=== PATIENT | female | born 1970 | race Hispanic/Latino ===

== ENCOUNTER → 2018-10-04 | Outpatient (CLI) | payer BC ==
--- NOTE | 2018-10-12 08:27 | Diagnostic Imaging Report ---
#[id number] - MGSCRBIL #BILATERAL DIGITAL SCREENING MAMMOGRAM WITH CAD: 10/04/2018 CLINICAL: Routine screening. Baseline examination. No prior exams were available for comparison. Current study contains 8 films. The tissue of both breasts is heterogeneously dense. This may lower the sensitivity of mammography. Current study was also evaluated with a Computer Aided Detection (CAD) system. Bilateral breast implants are intact. No significant masses, calcifications, or other findings are seen in either breast. IMPRESSION: BENIGN There is no mammographic evidence of malignancy. A 1 year screening mammogram is recommended. The patient will be notified by letter of the results. [facility] Nevaeh grijalva/maddie:10/11/2018 15:15:48 Environmental Engineering Manager: Michelle DELAROSA)(M), [facility] letter sent: Normal Exam Mammogram BI-RADS: 2 Benign
== END ==
LOC: MAMMO 10:00
PROVIDERS: ATTEND Obstetrics & Gynecology
DX: Z12.31 Encounter for screening mammogram for malignant neoplasm of breast (principal)
CPT/HCPCS: 77067

== ENCOUNTER 2025-08-31 00:49 | Emergency (ER) | payer BC, OTHER ==
[~2025-08-31] VITALS: Ht 165.1 cm; Wt 63.5 kg
[2025-08-31 00:50] VITALS: TEMP 98.3
[2025-08-31 01:34] LABS: BASOPHILS % 0.8 % (0.0-1.0); EOSINOPHILS % 1.2 % (0.0-6.0); LYMPHOCYTES % 27.6 % (18.0-39.1); MONOCYTES % 11.5 % (4.4-11.3); NEUTROPHILS % 58.6 % (38.7-80.0); RED CELL DISTRIBUTION WIDTH 19.7 % (11.7-14.4)
[2025-08-31] MEDS: ONDANSETRON HCL INJ 2MG/ML 2ML 2 MG/ML VIAL IV STA (01:36)
[2025-08-31] MEDS: Morphine 2mg Syringe 2 MG/ML SYR IV PRN (01:37)
[2025-08-31] MEDS: SODIUM CHLORIDE 0.9% 1000ML 1,000 ML IV ONE (01:38)
[2025-08-31 01:55] LABS: EST GLOMERULAR FILTRATION RATE 105.0 ML/MIN (>=60)
[2025-08-31 03:15] VITALS: PULSE 83; RESP 17
[2025-08-31] MEDS ORDERED: Morphine 2mg Syringe 2 MG/ML SYR IV ONE (03:15)
[2025-08-31] MEDS ORDERED: IOPAMIDOL 370 MG/ML 100 ML INFUS..BTL INJ ONE (03:18)
[2025-08-31] MEDS: DICYCLOMINE HCL 20 MG/2 ML VIAL IM ONE (03:52)
[2025-08-31] MEDS ORDERED: PANTOPRAZOLE SO40 MG PO (04:15)
[2025-08-31] MEDS ORDERED: DICYCLOMINE HCL20 MG PO (04:15)
[2025-08-31] MEDS ORDERED: ONDANSETRON ODT4 MG SL (04:15)
[2025-08-31 04:41] VITALS: BP 122/67; PULSE 87; RESP 15; TEMP 97.9; O2SAT 98
== END 2025-08-31 04:39 | disposition home or self-care (01) ==
LOC: ER 01:03
DX: K29.70 Gastritis, unspecified, without bleeding (principal); Z98.84 Bariatric surgery status
CPT/HCPCS: 36415; 74177; 80053; 83690; 84484; 85025; 93005; 99284; J2270; J2405; J2470; J7030; Q9967